=== PATIENT | male | born 1970 | race Caucasian/White ===

== ENCOUNTER 2025-06-14 17:19 | Inpatient (IN) | payer OTHER, SELFPAY ==
[2025-06-14 19:01] LABS: #Basophils 0.03 10x3/uL (0.0-0.2); #Eosinophils Less than 0.03 10x3/uL (0.0-0.5); #Monocytes 0.33 10x3/uL (0.0-1.1); #Neutrophils 4.08 10x3/uL (1.5-8.4); %Basophils 0.6 % (0.0-2.0); %Eosinophils 0.4 % (0.0-6.0); %Lymphocytes 17.0 % (18.0-47.0); %Monocytes 6.1 % (0.0-10.0); %Neutrophils 75.5 % (40.0-75.0); Hematocrit 40.0 % (38.8-50.0); Hemoglobin 13.6 g/dL (13.5-17.5); Mean Corpuscular Hemoglobin 28.8 pg (27.0-33.0); Mean Corpuscular Volume 84.6 fL (81.2-95.1); Platelet Count 151 10x3/uL (150-450); Red Blood Cell (RBC) Count 4.73 10x6/uL (4.32-5.72); White Blood Cell (WBC) Count 5.40 10x3/uL (3.5-10.5)
[2025-06-14 19:17] LABS: ALT (SGPT) 343 U/L (Less than 45); AST (SGOT) 230 U/L (11-34); Albumin 3.8 g/dL (3.1-4.5); Alkaline Phosphatase 58 U/L (40-110); Anion Gap 12 mmol/L (10-20); BUN (Urea Nitrogen) 22 mg/dL (8.4-25.7); Bilirubin, Total 0.7 mg/dL (0.3-1.2); Calc. Creatinine Clearance 0 mL/min (70-130); Calcium 8.8 mg/dL (7.8-10.44); Carbon Dioxide 26 mmol/L (22-29); Chloride 104 mmol/L (98-107); Globulin 3.8 g/dL (2.4-3.5); Glucose 86 mg/dL (70-105); Potassium 3.9 mmol/L (3.5-5.1); Sodium 138 mmol/L (136-145)
[2025-06-14] MEDS ORDERED: CEFAZOLIN 2 GM VIAL ONE (20:30)
[2025-06-14 20:51] LABS: INR-International Normal Ratio 1.1; PTT 30.5 sec (22.0-33.0); Prothrombin Time 11.8 sec (9.5-12.1)
[2025-06-14 22:24] LABS: Glucose, Urine (Dipstick) Normal (Negative); Leukocyte Negative (Negative); Protein, Urine (Dipstick) Negative (Neg-Trace); Specific Gravity, Urine 1.010 (1.005-1.030)
[2025-06-14 22:31] LABS: Bacteria/HPF None Seen HPF (None Seen); CAUTI Indications for Culture Pelvic or flank pain; RBC/HPF 0-3 HPF (0-3); WBC/HPF None Seen HPF (0-3)
[2025-06-14 22:32] LABS: Urine Culture Reflex No No
[2025-06-14] MEDS ORDERED: Ondansetron PF 4 MG/2 ML Vial IVP PRN (22:33)
[2025-06-14] MEDS ORDERED: Guaifenesin DM 100-10/5 ML UDCUP PO PRN (22:33)
[2025-06-14] MEDS ORDERED: Calcium Carbonate 500 MG ChewTAB PO PRN (22:33)
[2025-06-14] MEDS ORDERED: Senokot S 8.6-50 MG TAB PO PRN (22:33)
[2025-06-14] MEDS ORDERED: Acetaminophen 325 MG TAB PO PRN (22:33)
[2025-06-14 23:57] VITALS: BMI 23.7
[2025-06-15] MEDS: Ketorolac Tromethamine 30 MG (1 mL) VIAL IVP SCH ×2 (00:11→21:05)
[2025-06-15 02:27] LABS: Glucose, Urine (Dipstick) Normal (Negative); Leukocyte Negative (Negative); Protein, Urine (Dipstick) Negative (Neg-Trace); Specific Gravity, Urine 1.010 (1.005-1.030)
[2025-06-15 02:36] LABS: Bacteria/HPF Rare-Few HPF (None Seen); RBC/HPF None Seen HPF (0-3); WBC/HPF None Seen HPF (0-3)
[2025-06-15 02:56] LABS: Cocaine Metabolite Screen Negative (Negative); THC/Cannabinoid Screen PRELIM POSITIVE (Negative); Tricyclic Screen Negative (Negative)
[2025-06-15] MEDS: FLU (Fluarix Triv) 25-26 (6MOS UP)/PF 45 MCG/0.5 ML Syringe IM ONE (03:11)
[2025-06-15] MEDS: HYDROcodone/Acetaminophen 10/325 mg Tablet PO PRN (07:37)
[2025-06-15 09:16] LABS: #Basophils 0.04 10x3/uL (0.0-0.2); #Eosinophils 0.08 10x3/uL (0.0-0.5); #Monocytes 0.45 10x3/uL (0.0-1.1); #Neutrophils 2.63 10x3/uL (1.5-8.4); %Basophils 0.9 % (0.0-2.0); %Eosinophils 1.7 % (0.0-6.0); %Lymphocytes 30.4 % (18.0-47.0); %Monocytes 9.8 % (0.0-10.0); %Neutrophils 57.0 % (40.0-75.0); Hematocrit 44.8 % (38.8-50.0); Hemoglobin 15.4 g/dL (13.5-17.5); Mean Corpuscular Hemoglobin 29.1 pg (27.0-33.0); Mean Corpuscular Volume 84.5 fL (81.2-95.1); Platelet Count 146 10x3/uL (150-450); Red Blood Cell (RBC) Count 5.30 10x6/uL (4.32-5.72); White Blood Cell (WBC) Count 4.61 10x3/uL (3.5-10.5)
[2025-06-15 09:37] LABS: ALT (SGPT) 337 U/L (Less than 45); AST (SGOT) 241 U/L (11-34); Albumin 3.9 g/dL (3.1-4.5); Alkaline Phosphatase 62 U/L (40-110); Anion Gap 13 mmol/L (10-20); BUN (Urea Nitrogen) 18 mg/dL (8.4-25.7); Bilirubin, Total 0.6 mg/dL (0.3-1.2); CK (CPK) 348 U/L (30-200); Calc. Creatinine Clearance 103 mL/min (70-130); Calcium 9.1 mg/dL (7.8-10.44); Carbon Dioxide 21 mmol/L (22-29); Chloride 108 mmol/L (98-107); Globulin 4.1 g/dL (2.4-3.5); Glucose 104 mg/dL (70-105); Potassium 4.0 mmol/L (3.5-5.1); Sodium 138 mmol/L (136-145)
[2025-06-16 00:30] LABS: Chlam.trachomatis by PCR,Urine Not Detected (NotDetected); GC N.gonorrhoeae PCR,UrineVOID Not Detected (NotDetected)
[2025-06-16 09:52] LABS: Platelet Count 153 10x3/uL (150-450)
[2025-06-16 09:53] LABS: #Basophils 0.03 10x3/uL (0.0-0.2); #Eosinophils 0.15 10x3/uL (0.0-0.5); #Monocytes 0.38 10x3/uL (0.0-1.1); #Neutrophils 2.56 10x3/uL (1.5-8.4); %Basophils 0.7 % (0.0-2.0); %Eosinophils 3.5 % (0.0-6.0); %Lymphocytes 27.5 % (18.0-47.0); %Monocytes 8.8 % (0.0-10.0); %Neutrophils 59.3 % (40.0-75.0); Hematocrit 40.6 % (38.8-50.0); Hemoglobin 14.1 g/dL (13.5-17.5); Mean Corpuscular Hemoglobin 29.3 pg (27.0-33.0); Mean Corpuscular Volume 84.2 fL (81.2-95.1); Red Blood Cell (RBC) Count 4.82 10x6/uL (4.32-5.72); White Blood Cell (WBC) Count 4.32 10x3/uL (3.5-10.5)
[2025-06-16 09:59] LABS: ALT (SGPT) 263 U/L (Less than 45); AST (SGOT) 176 U/L (11-34); Albumin 3.4 g/dL (3.1-4.5); Alkaline Phosphatase 62 U/L (40-110); Anion Gap 10 mmol/L (10-20); BUN (Urea Nitrogen) 28 mg/dL (8.4-25.7); Bilirubin, Total 0.4 mg/dL (0.3-1.2); Calc. Creatinine Clearance 101 mL/min (70-130); Calcium 8.5 mg/dL (7.8-10.44); Carbon Dioxide 22 mmol/L (22-29); Chloride 107 mmol/L (98-107); Globulin 3.3 g/dL (2.4-3.5); Glucose 95 mg/dL (70-105); Potassium 3.8 mmol/L (3.5-5.1); Sodium 135 mmol/L (136-145)
[2025-06-16 13:31] VITALS: BP 130/61; TEMP 98.4
== END 2025-06-16 14:49 | disposition home or self-care (01) | DRG 914 ==
LOC: CSHERS 17:19 → CSHTELE 22:33 → OBSVTOIN 06-15 15:57
PROVIDERS: ADMIT Student in an Organized Health Care Education/Training Program; ATTEND Hospitalist
DX: S39.840A Fracture of corpus cavernosum penis, initial encounter (principal); S30.22XA Contusion of scrotum and testes, initial encounter; B19.20 Unspecified viral hepatitis C without hepatic coma; F41.9 Anxiety disorder, unspecified; N49.2 Inflammatory disorders of scrotum; N40.0 Benign prostatic hyperplasia without lower urinary tract symptoms; F12.10 Cannabis abuse, uncomplicated; F17.290 Nicotine dependence, other tobacco product, uncomplicated; R74.01 Elevation of levels of liver transaminase levels; N20.0 Calculus of kidney; Z98.890 Other specified postprocedural states; Z88.8 Allergy status to other drugs, medicaments and biological substances; Z87.442 Personal history of urinary calculi; Z23 Encounter for immunization
CPT/HCPCS: 36415; 74177; 76870; 80053; 80306; 81001; 82550; 85025; 85610; 85730; 87491; 87591; 93976; 96365; 96366; 96375; 96376; G0378; J1885; J2270; J3010; J7120